=== PATIENT | female | born 1950 | race Caucasian/White ===

== ENCOUNTER 2017-08-31 22:50 | Inpatient (IN) | payer MEDICARE, MEDICAID ==
[~2017-08-31] VITALS: Ht 167.6 cm; Wt 70.0 kg
[2017-08-31] MEDS ORDERED: levoFLOXACIN-Levaquin 750MG/D5 150 ML IV ONE (23:15)
[2017-08-31] MEDS ORDERED: normal saline 1000ML IV soln IV ONE (23:15)
[2017-08-31 23:22] LABS: BASOPHILS % (AUTO) 0.3 % (0-1); EOSINOPHILS # (AUTO) 0.2 X10'3 (0-0.9); EOSINOPHILS % (AUTO) 2.1 % (0-6); HEMATOCRIT 36.9 % (35.0-45.0); HEMOGLOBIN 12.4 g/dl (12.0-16.0); LYMPHOCYTES # (AUTO) 1.2 X10'3 (1.1-4.8); LYMPHOCYTES % (AUTO) 15.4 % (21-51); MEAN CORPUSCULAR HEMOGLOBIN 27.9 PG (27.0-31.0); MEAN CORPUSCULAR HGB CONC 33.7 % (33.0-36.5); MEAN CORPUSCULAR VOLUME 82.7 FL (78-98); MEAN PLATELET VOLUME 9.7 FL (7.4-10.4); MONOCYTES # (AUTO) 0.4 X10'3 (0-0.9); MONOCYTES % (AUTO) 4.7 % (2-12); NEUTROPHILS % (AUTO) 77.5 % (42-75); PLATELET COUNT 176 X10'3 (140-440); RED BLOOD COUNT 4.47 X10'6 (4.20-5.60); RED CELL DISTRIBUTION WIDTH 15.8 % (11.5-14.5); WHITE BLOOD COUNT 7.7 X10'3 (4.5-11.0)
[2017-08-31 23:27] LABS: PARTIAL THROMBOPLASTIN TIME 30 SECONDS (22-32); PROTHROMBIN TIME 10.7 SECONDS (9.0-12.0)
[2017-08-31 23:33] LABS: ALANINE AMINOTRANSFERASE 33 U/L (12-78); ALBUMIN 3.2 G/DL (3.4-5.0); ALBUMIN/GLOBULIN RATIO 0.6 (1.1-1.5); ALKALINE PHOSPHATASE 129 IU/L (46-116); ANION GAP 12 (8-16); BILIRUBIN,TOTAL 0.5 MG/DL (0.1-1.0); BLOOD UREA NITROGEN 11 MG/DL (7-18); BUN/CREATININE RATIO 9.6 (6.6-38.0); CALCIUM 8.9 MG/DL (8.5-10.1); CHLORIDE 103 MMOL/L (99-107); CREATININE 1.14 MG/DL (0.40-0.90); GLUCOSE 198 MG/DL (70-104); MAGNESIUM 1.6 MG/DL (1.5-2.4); SODIUM 143 MMOL/L (135-145); TOTAL CARBON DIOXIDE 28.5 MMOL/L (24-32); TOTAL PROTEIN 8.3 G/DL (6.4-8.2); eGFR 47 ML/MIN
[2017-08-31 23:36] LABS: ASPARTATE AMINO TRANSFERASE 51 U/L (10-37); POTASSIUM 4.3 MMOL/L (3.5-5.1)
[2017-08-31 23:41] LABS: ABG HCO3 25.6 mmol/L (22.0-26.0); ABG PCO2 (T) 54.7 mmHg (32.0-45.0); ABG PH (T) 7.284 (7.350-7.450); ABG PO2 (T) 62.4 mmHg (83-108); ALLEN'S TEST Positive; FCOHb 3.2 % (0.5-1.5); FLOW 3 L/min; FMetHb 0.1 % (0.3-1.12); PATIENT TEMPERATURE 36.3; TOTAL HEMOGLOBIN 12.6 G/dl (12.0-16.0)
[2017-09-01] MEDS ORDERED: iohexol 350MG/ML 100ml bottle IV ONE (00:08)
[2017-09-01] MEDS: MESSAGE TO NURSING PO SCH ×2 (00:30→23:22)
[2017-09-01 01:25] LABS: CLARITY,URINE CLOUDY (Clear); COLOR,URINE YELLOW (Yellow); GLUCOSE, URINE NEGATIVE (Neg); KETONES,URINE NEGATIVE (Neg); LEUKOCYTE ESTERASE ,URINE NEGATIVE (Neg); NITRITES, URINE NEGATIVE (Neg); OCCULT BLOOD,URINE MODERATE (Neg); PH,URINE 5.5 (4.8-8.0); PROTEIN,URINE TRACE mg/dl (Neg); UROBILINOGEN,URINE 0.2 E.U/dL (0.2-1.0)
[2017-09-01 01:26] LABS: UA COLLECTION TYPE STRAIGHT CATH
[2017-09-01 01:32] LABS: SQUAMOUS EPITHELIAL CELL,UR MODERATE /LPF (FEW)
[2017-09-01 01:33] LABS: BACTERIA,URINE 1+ /HPF (Neg); WBC CLUMPS,URINE MODERATE /HPF (NEGATIVE); WBC,URINE 50-100 /HPF (0-4)
[2017-09-01] MEDS ORDERED: METF500T PO (01:34)
[2017-09-01] MEDS ORDERED: PRAV80TA3 PO (01:34)
[2017-09-01] MEDS ORDERED: ALPR1TAB2 PO (01:34)
[2017-09-01] MEDS ORDERED: DONE10TA37 PO (01:34)
[2017-09-01 01:35] LABS: AMORPHOUS URATES 1+
[2017-09-01] MEDS ORDERED: PROP1DRO7 OP (01:47)
[2017-09-01] MEDS ORDERED: GLIP5TAB13 PO (01:47)
[2017-09-01] MEDS ORDERED: IMIP50TA7 PO (01:47)
[2017-09-01] MEDS ORDERED: GUAI400T77 PO (01:47)
[2017-09-01] MEDS ORDERED: ALBU6.7H INH (01:47)
[2017-09-01] MEDS ORDERED: EZET10TA14 PO (01:47)
[2017-09-01] MEDS ORDERED: MESSAGE TO PHARMACY PO ONE (02:10)
[2017-09-01] MEDS ORDERED: glucagon, human recombinant 1mg kit SUBCUT PRN (02:10)
[2017-09-01] MEDS ORDERED: dextrose 50%-water 50ml dispensing syringe IV PRN ×2 (02:10)
[2017-09-01] MEDS ORDERED: insulin Lispro (HumaLOG) vial - multi-dose SQ SCH (02:10)
[2017-09-01] MEDS ORDERED: dextrose ORAL solution 15 GM/59 ML bottle PO PRN ×2 (02:10)
[2017-09-01] MEDS ORDERED: albuterol 2.5 MG/3 ML nebule NEB PRN (02:25)
[2017-09-01] MEDS ORDERED: ipratropium 0.5 MG/2.5ML nebule IH PRN (02:25)
[2017-09-01 02:33] LABS: ETHANOL < 0.010 GM/DL (0.0-0.010)
[2017-09-01] MEDS: normal saline 1000ml 1,000 ML IV SCH ×2 (02:34→22:17)
[2017-09-01 02:40] LABS: URINE AMPHETAMINE SCREEN NEGATIVE (Neg); URINE BARBITUATE SCREEN NEGATIVE (Neg); URINE BENZODIAZEPINES SCREEN POSITIVE (Neg); URINE CANNABINOID SCREEN NEGATIVE (Neg); URINE COCAINE SCREEN NEGATIVE (Neg); URINE METHADONE SCREEN NEGATIVE (Neg); URINE OPIATE SCREEN POSITIVE (Neg); URINE PHENCYCLIDINE SCREEN NEGATIVE (Neg)
[2017-09-01] MEDS ORDERED: azithromycin 250mg tablet PO SCH (02:41)
[2017-09-01 02:46] LABS: HEMOGLOBIN A1C 6.9 % (4.5-6.2)
[2017-09-01 03:00] VITALS: BP 124/59
[2017-09-01] MEDS ORDERED: cefTRIAXone 1g/NS 100ml IVPB 100 ML IV SCH (03:00)
[2017-09-01 06:00] VITALS: BP 122/53
[2017-09-01] MEDS: enoxaparin 40mg/0.4ml syringe SUBCUT SCH ×2 (08:00→09:09)
[2017-09-01] MEDS: ezetimibe 10mg tablet PO SCH (09:08)
[2017-09-01 11:00] VITALS: BP 118/47
[2017-09-01] MEDS: ampicill/sulbac 1.5gm/NS 100ml 100 ML IV SCH ×2 (14:25→20:18)
[2017-09-01 15:00] VITALS: BP 131/48
[2017-09-01] MEDS: ondansetron/PF 4mg/2ml inj IV PRN (16:45)
[2017-09-01] MEDS: lactobacillus rhamnosus 10,000 MMU CELLS/CAPSULE PO SCH (16:45)
[2017-09-01 19:00] VITALS: BP 126/50
[2017-09-01] MEDS: pravastatin 40mg tablet PO SCH (20:19)
[2017-09-01] MEDS: insulin glargine (Lantus) pen - multi-dose SQ SCH (21:00)
[2017-09-01 23:00] VITALS: BP_SYST 126; BP_SYST 151; BP_DIAS 50; BP_DIAS 55
[2017-09-02] VITALS (7 sets, daily range): BP systolic 146–166; BP diastolic 54–65
[2017-09-02] MEDS: ampicill/sulbac 1.5gm/NS 100ml 100 ML IV SCH ×4 (02:29→21:03)
[2017-09-02 05:34] LABS: BASOPHILS % (AUTO) 0.2 % (0-1); EOSINOPHILS # (AUTO) 0.2 X10'3 (0-0.9); EOSINOPHILS % (AUTO) 1.9 % (0-6); HEMATOCRIT 33.7 % (35.0-45.0); HEMOGLOBIN 11.4 g/dl (12.0-16.0); LYMPHOCYTES # (AUTO) 1.2 X10'3 (1.1-4.8); LYMPHOCYTES % (AUTO) 12.2 % (21-51); MEAN CORPUSCULAR HEMOGLOBIN 28.2 PG (27.0-31.0); MEAN CORPUSCULAR HGB CONC 33.8 % (33.0-36.5); MEAN CORPUSCULAR VOLUME 83.4 FL (78-98); MEAN PLATELET VOLUME 9.6 FL (7.4-10.4); MONOCYTES # (AUTO) 0.4 X10'3 (0-0.9); MONOCYTES % (AUTO) 4.3 % (2-12); NEUTROPHILS # (AUTO) 7.9 X10'3 (1.8-7.7); NEUTROPHILS % (AUTO) 81.4 % (42-75); PLATELET COUNT 155 X10'3 (140-440); RED BLOOD COUNT 4.04 X10'6 (4.20-5.60); RED CELL DISTRIBUTION WIDTH 15.8 % (11.5-14.5); WHITE BLOOD COUNT 9.7 X10'3 (4.5-11.0)
[2017-09-02 05:54] LABS: ALBUMIN 2.7 G/DL (3.4-5.0); ANION GAP 9 (8-16); BLOOD UREA NITROGEN 8 MG/DL (7-18); BUN/CREATININE RATIO 8.2 (6.6-38.0); CALCIUM 7.9 MG/DL (8.5-10.1); CHLORIDE 104 MMOL/L (99-107); CREATININE 0.98 MG/DL (0.40-0.90); GLUCOSE 133 MG/DL (70-104); POTASSIUM 3.9 MMOL/L (3.5-5.1); SODIUM 142 MMOL/L (135-145); TOTAL CARBON DIOXIDE 29.4 MMOL/L (24-32); eGFR 56 ML/MIN
[2017-09-02] MEDS: lactobacillus rhamnosus 10,000 MMU CELLS/CAPSULE PO SCH ×2 (07:22→17:17)
[2017-09-02] MEDS: ezetimibe 10mg tablet PO SCH (07:23)
[2017-09-02] MEDS: enoxaparin 40mg/0.4ml syringe SUBCUT SCH (07:24)
[2017-09-02] MEDS: nicotine 21mg patch - 24 hr TD SCH (07:25)
[2017-09-02] MEDS: normal saline 1000ml 1,000 ML IV SCH (17:54)
[2017-09-02] MEDS: insulin glargine (Lantus) pen - multi-dose SQ SCH (21:00)
[2017-09-02] MEDS: pravastatin 40mg tablet PO SCH (21:03)
[2017-09-03] MEDS: ampicill/sulbac 1.5gm/NS 100ml 100 ML IV SCH ×4 (01:39→20:01)
[2017-09-03 03:00] VITALS: BP 134/65
[2017-09-03 06:00] VITALS: BP 182/78
[2017-09-03 06:40] LABS: BASOPHILS % (AUTO) 0.3 % (0-1); EOSINOPHILS % (AUTO) 0.3 % (0-6); HEMATOCRIT 34.1 % (35.0-45.0); HEMOGLOBIN 11.7 g/dl (12.0-16.0); LYMPHOCYTES # (AUTO) 1.3 X10'3 (1.1-4.8); LYMPHOCYTES % (AUTO) 12.8 % (21-51); MEAN CORPUSCULAR HEMOGLOBIN 28.2 PG (27.0-31.0); MEAN CORPUSCULAR HGB CONC 34.2 % (33.0-36.5); MEAN CORPUSCULAR VOLUME 82.3 FL (78-98); MEAN PLATELET VOLUME 9.2 FL (7.4-10.4); MONOCYTES # (AUTO) 0.6 X10'3 (0-0.9); MONOCYTES % (AUTO) 6.3 % (2-12); NEUTROPHILS # (AUTO) 7.9 X10'3 (1.8-7.7); NEUTROPHILS % (AUTO) 80.3 % (42-75); PLATELET COUNT 151 X10'3 (140-440); RED BLOOD COUNT 4.14 X10'6 (4.20-5.60); RED CELL DISTRIBUTION WIDTH 15.7 % (11.5-14.5); WHITE BLOOD COUNT 9.9 X10'3 (4.5-11.0)
[2017-09-03 06:50] LABS: ALBUMIN 2.6 G/DL (3.4-5.0); ANION GAP 10 (8-16); BLOOD UREA NITROGEN 8 MG/DL (7-18); BUN/CREATININE RATIO 9.6 (6.6-38.0); CALCIUM 8.4 MG/DL (8.5-10.1); CHLORIDE 103 MMOL/L (99-107); CREATININE 0.83 MG/DL (0.40-0.90); GLUCOSE 152 MG/DL (70-104); POTASSIUM 3.4 MMOL/L (3.5-5.1); SODIUM 141 MMOL/L (135-145); TOTAL CARBON DIOXIDE 27.8 MMOL/L (24-32); eGFR 68 ML/MIN
[2017-09-03] MEDS: nicotine 21mg patch - 24 hr TD SCH (08:00)
[2017-09-03] MEDS: lactobacillus rhamnosus 10,000 MMU CELLS/CAPSULE PO SCH ×2 (08:15→17:16)
[2017-09-03] MEDS: enoxaparin 40mg/0.4ml syringe SUBCUT SCH (08:16)
[2017-09-03] MEDS: ezetimibe 10mg tablet PO SCH (08:16)
[2017-09-03] MEDS ORDERED: lisinopril 10 MG tablet PO SCH (08:45)
[2017-09-03 11:00] VITALS: BP 182/78
[2017-09-03] MEDS: normal saline 1000ml 1,000 ML IV SCH (13:54)
[2017-09-03 15:00] VITALS: BP 184/94
[2017-09-03] MEDS ORDERED: lisinopril 10 MG tablet PO ONE (16:30)
[2017-09-03] MEDS ORDERED: furosemide 20 MG/2 ML vial IV ONE (18:35)
[2017-09-03 19:00] VITALS: BP 188/72
[2017-09-03] MEDS ORDERED: potassium Cl 20 mEq SR tablet PO PRN (19:25)
[2017-09-03] MEDS ORDERED: potassium Cl 40MEQ/NS 500ml 500 ML IV PRN ×2 (19:25)
[2017-09-03] MEDS ORDERED: magnesium 4gm in 100ml NS 100 ML IV PRN (19:25)
[2017-09-03] MEDS ORDERED: magnesium Cl slow-release 64mg tablet PO PRN (19:25)
[2017-09-03] MEDS ORDERED: magnesium 2GM in 50ml NS 50 ML IV PRN (19:25)
[2017-09-03] MEDS: pravastatin 40mg tablet PO SCH (20:00)
[2017-09-03] MEDS: lisinopril 20mg tablet PO SCH (20:00)
[2017-09-03] MEDS: potassium Cl 20 mEq SR tablet PO PRN (20:01)
[2017-09-03] MEDS: insulin glargine (Lantus) pen - multi-dose SQ SCH (21:00)
[2017-09-03 23:00] VITALS: BP 169/67
[2017-09-04] VITALS: BP 164/68
[2017-09-04] MEDS: ampicill/sulbac 1.5gm/NS 100ml 100 ML IV SCH ×3 (02:12→14:00)
[2017-09-04 05:51] LABS: BASOPHILS % (AUTO) 0.1 % (0-1); EOSINOPHILS # (AUTO) 0.2 X10'3 (0-0.9); EOSINOPHILS % (AUTO) 1.9 % (0-6); HEMATOCRIT 35.5 % (35.0-45.0); HEMOGLOBIN 12.1 g/dl (12.0-16.0); LYMPHOCYTES # (AUTO) 1.5 X10'3 (1.1-4.8); LYMPHOCYTES % (AUTO) 14.8 % (21-51); MEAN CORPUSCULAR HEMOGLOBIN 28.2 PG (27.0-31.0); MEAN CORPUSCULAR HGB CONC 34.2 % (33.0-36.5); MEAN CORPUSCULAR VOLUME 82.5 FL (78-98); MEAN PLATELET VOLUME 9.3 FL (7.4-10.4); MONOCYTES # (AUTO) 0.6 X10'3 (0-0.9); MONOCYTES % (AUTO) 5.8 % (2-12); NEUTROPHILS # (AUTO) 7.7 X10'3 (1.8-7.7); NEUTROPHILS % (AUTO) 77.4 % (42-75); PLATELET COUNT 187 X10'3 (140-440); RED CELL DISTRIBUTION WIDTH 15.4 % (11.5-14.5)
[2017-09-04 06:29] LABS: ALBUMIN 2.4 G/DL (3.4-5.0); ANION GAP 10 (8-16); BLOOD UREA NITROGEN 11 MG/DL (7-18); BUN/CREATININE RATIO 13.4 (6.6-38.0); CALCIUM 8.5 MG/DL (8.5-10.1); CHLORIDE 102 MMOL/L (99-107); CREATININE 0.82 MG/DL (0.40-0.90); GLUCOSE 131 MG/DL (70-104); SODIUM 142 MMOL/L (135-145); TOTAL CARBON DIOXIDE 29.9 MMOL/L (24-32); eGFR 69 ML/MIN
[2017-09-04 06:38] LABS: POTASSIUM 2.8 MMOL/L (3.5-5.1)
[2017-09-04] MEDS ORDERED: LIDOcaine 1% 30ml vial 5 ML in potassium Cl 40MEQ/NS 500ml 500 ML IV PRN (07:25)
[2017-09-04] MEDS: lactobacillus rhamnosus 10,000 MMU CELLS/CAPSULE PO SCH (07:38)
[2017-09-04] MEDS: lisinopril 20mg tablet PO SCH (07:38)
[2017-09-04] MEDS: nicotine 21mg patch - 24 hr TD SCH (07:39)
[2017-09-04] MEDS: enoxaparin 40mg/0.4ml syringe SUBCUT SCH (07:39)
[2017-09-04] MEDS: normal saline 1000ml 1,000 ML IV SCH (07:40)
[2017-09-04] MEDS: ezetimibe 10mg tablet PO SCH (07:41)
[2017-09-04 08:00] VITALS: BP 168/80
[2017-09-04] MEDS ORDERED: lisinopril 20mg tablet PO SCH (08:00)
[2017-09-04] MEDS: ondansetron/PF 4mg/2ml inj IV PRN (08:31)
[2017-09-04] MEDS: potassium Cl 20 mEq SR tablet PO PRN (10:15)
[2017-09-04 10:49] VITALS: BP 169/67
== END 2017-09-04 17:18 | DRG 177 ==
LOC: ER 22:51 → ED HOLD 09-01 01:54 → PCU 3S 09-01 03:35 → SUR 3N 09-03 22:17
PROVIDERS: ADMIT Family Medicine; ATTEND Internal Medicine
PROC: 5A09357 Assistance with Respiratory Ventilation, Less than 24 Consecutive Hours, Continuous Positive Airway Pressure (ICD-10-PCS; principal; 2017-09-01)
PROC: B32T1ZZ Computerized Tomography (CT Scan) of Left Pulmonary Artery using Low Osmolar Contrast (ICD-10-PCS; 2017-09-01)
PROC: B3201ZZ Computerized Tomography (CT Scan) of Thoracic Aorta using Low Osmolar Contrast (ICD-10-PCS; 2017-09-01)
PROC: B32S1ZZ Computerized Tomography (CT Scan) of Right Pulmonary Artery using Low Osmolar Contrast (ICD-10-PCS; 2017-09-01)
DX: J69.0 Pneumonitis due to inhalation of food and vomit (principal); J96.21 Acute and chronic respiratory failure with hypoxia; G20 Parkinson's disease; J44.0 Chronic obstructive pulmonary disease with (acute) lower respiratory infection; J44.1 Chronic obstructive pulmonary disease with (acute) exacerbation; R18.8 Other ascites; N39.0 Urinary tract infection, site not specified; R16.1 Splenomegaly, not elsewhere classified; F02.80 Dementia in other diseases classified elsewhere, unspecified severity, without behavioral disturbance, psychotic disturbance, mood disturbance, and anxiety; E11.9 Type 2 diabetes mellitus without complications; E78.5 Hyperlipidemia, unspecified; E87.6 Hypokalemia; F32.9 Major depressive disorder, single episode, unspecified; K74.60 Unspecified cirrhosis of liver; I10 Essential (primary) hypertension; F17.210 Nicotine dependence, cigarettes, uncomplicated; Z90.710 Acquired absence of both cervix and uterus; Z90.49 Acquired absence of other specified parts of digestive tract; Z88.6 Allergy status to analgesic agent; Z88.1 Allergy status to other antibiotic agents; Z88.8 Allergy status to other drugs, medicaments and biological substances; Z79.899 Other long term (current) drug therapy; Z79.82 Long term (current) use of aspirin; Z82.0 Family history of epilepsy and other diseases of the nervous system; Z83.3 Family history of diabetes mellitus; Z71.6 Tobacco abuse counseling
CPT/HCPCS: 36415; 36600; 71045; 71275; 80048; 80053; 80305; 80320; 81001; 82803; 82948; 83036; 83605; 83735; 84132; 84145; 85018; 85025; 85610; 85730; 87040; 87070; 87088; 87502; 87503; 92616; 93005; 93306; 94660; 94668; 94760; 96365; 97110; 97161; 97530; 99285; A6213; J0295; J0696; J1650; J1815; J1940; J1956; J2405; J3480; J3490; J7030; Q9967

== ENCOUNTER 2017-12-20 16:00 | Emergency (ER) | payer MEDICARE, MEDICAID ==
[~2017-12-20] VITALS: Ht 167.6 cm; Wt 71.5 kg
[~2017-12-20 16:00] MED LIST: ALBU6.7H INH; ALPR1TAB2 PO; DONE10TA37 PO; EZET10TA14 PO; GLIP5TAB13 PO; GUAI400T77 PO; IMIP50TA7 PO; METF500T PO; PRAV80TA3 PO; PROP1DRO7 OP
[2017-12-20] MEDS ORDERED: normal saline 1000ML IV soln IVB ONE (16:25)
[2017-12-20 16:47] LABS: BASOPHILS % (AUTO) 0.3 % (0-1); EOSINOPHILS # (AUTO) 0.5 X10'3 (0-0.9); EOSINOPHILS % (AUTO) 6.7 % (0-6); HEMOGLOBIN 9.6 g/dl (12.0-16.0); LYMPHOCYTES # (AUTO) 2.5 X10'3 (1.1-4.8); LYMPHOCYTES % (AUTO) 32.5 % (21-51); MEAN CORPUSCULAR HEMOGLOBIN 26.5 PG (27.0-31.0); MEAN CORPUSCULAR HGB CONC 32.9 % (33.0-36.5); MEAN CORPUSCULAR VOLUME 80.6 FL (78-98); MEAN PLATELET VOLUME 10.3 FL (7.4-10.4); MONOCYTES # (AUTO) 0.6 X10'3 (0-0.9); MONOCYTES % (AUTO) 8.3 % (2-12); NEUTROPHILS % (AUTO) 52.2 % (42-75); PLATELET COUNT 157 X10'3 (140-440); RED CELL DISTRIBUTION WIDTH 16.3 % (11.5-14.5); WHITE BLOOD COUNT 7.7 X10'3 (4.5-11.0)
[2017-12-20 16:56] LABS: PROTHROMBIN TIME 10.6 SECONDS (9.0-12.0)
[2017-12-20 17:04] LABS: ALANINE AMINOTRANSFERASE 58 U/L (12-78); ALBUMIN 3.2 G/DL (3.4-5.0); ALBUMIN/GLOBULIN RATIO 0.7 (1.1-1.5); ALKALINE PHOSPHATASE 114 IU/L (46-116); ANION GAP 12 (8-16); ASPARTATE AMINO TRANSFERASE 44 U/L (10-37); BILIRUBIN,TOTAL 0.4 MG/DL (0.1-1.0); BLOOD UREA NITROGEN 17 MG/DL (7-18); BUN/CREATININE RATIO 18.5 (6.6-38.0); CALCIUM 9.9 MG/DL (8.5-10.1); CHLORIDE 103 MMOL/L (99-107); CREATININE 0.92 MG/DL (0.40-0.90); GLUCOSE 230 MG/DL (70-104); POTASSIUM 4.1 MMOL/L (3.5-5.1); SODIUM 138 MMOL/L (135-145); TOTAL CARBON DIOXIDE 23.3 MMOL/L (24-32); TOTAL PROTEIN 7.9 G/DL (6.4-8.2); eGFR 61 ML/MIN
[2017-12-20 17:25] LABS: CLARITY,URINE CLOUDY (Clear); COLOR,URINE YELLOW (Yellow); GLUCOSE, URINE >=1000 mg/dl (Neg); KETONES,URINE NEGATIVE (Neg); LEUKOCYTE ESTERASE ,URINE MODERATE (Neg); NITRITES, URINE POSITIVE (Neg); OCCULT BLOOD,URINE LARGE (Neg); PH,URINE 5.5 (4.8-8.0); PROTEIN,URINE NEGATIVE (Neg); UA COLLECTION TYPE CLN CATCH MIDSTREAM; UROBILINOGEN,URINE 0.2 E.U/dL (0.2-1.0)
[2017-12-20 17:47] LABS: SQUAMOUS EPITHELIAL CELL,UR MANY /LPF (FEW)
[2017-12-20 17:49] LABS: WBC,URINE 50-100 /HPF (0-4)
[2017-12-20 17:50] LABS: BACTERIA,URINE 1+ /HPF (Neg)
[2017-12-20 18:38] VITALS: BP 124/71
== END 2017-12-20 18:40 | disposition home or self-care (01) ==
LOC: ER 16:01
DX: E11.65 Type 2 diabetes mellitus with hyperglycemia (principal); E11.42 Type 2 diabetes mellitus with diabetic polyneuropathy; G20 Parkinson's disease; F02.80 Dementia in other diseases classified elsewhere, unspecified severity, without behavioral disturbance, psychotic disturbance, mood disturbance, and anxiety; I10 Essential (primary) hypertension; Z87.891 Personal history of nicotine dependence; Z88.5 Allergy status to narcotic agent; Z88.1 Allergy status to other antibiotic agents; Z90.49 Acquired absence of other specified parts of digestive tract; Z90.710 Acquired absence of both cervix and uterus; Z79.4 Long term (current) use of insulin
CPT/HCPCS: 36415; 71045; 80053; 81001; 82009; 82948; 84484; 85025; 85610; 93005; 96360; 99285; J7030

== ENCOUNTER 2018-04-12 08:33 | Day surgery (SDC) | payer MEDICARE, MEDICAID ==
[~2018-04-12] VITALS: Ht 167.6 cm; Wt 69.4 kg
[2018-04-12 08:50] VITALS: BP 153/86
[2018-04-12] MEDS ORDERED: LIDOcaine 1% (10mg/ml)w/preservative injection 20ml MDV SQ ONE (09:00)
[2018-04-12] MEDS ORDERED: normal saline 1000ml 1,000 ML IV PRN (09:00)
[2018-04-12] MEDS ORDERED: albumin (human) 25% 100 ML IV solution IV PRN (09:00)
[2018-04-12 09:10] VITALS: BP 153/86
[2018-04-12 09:37] VITALS: BP 136/69
[2018-04-12 09:55] VITALS: BP 140/77
[2018-04-12 11:36] LABS: LYMPHOCYTES,BODY FLUID 69 %; MONOCYTES,BODY FLUID 26 %; NEUTROPHILS,BODY FLUID 5 %
[2018-04-12 11:40] LABS: BF RBC COUNT 650 /CU MM; BF WBC COUNT 560 /CU MM (0-1000); BFAPPEAR HAZY; BFCOLOR STRAW; BFVOLUME 45 ML
[2018-04-12 11:41] LABS: BF MESOTHELIAL CELLS FEW
[2018-04-12] MEDS ORDERED: ALBU90AE IH (15:39)
== END 2018-04-12 10:00 | disposition home or self-care (01) ==
LOC: SSTAY O 08:33
PROVIDERS: ATTEND Radiology Diagnostic Radiology
DX: R18.8 Other ascites (principal); G20 Parkinson's disease; E11.42 Type 2 diabetes mellitus with diabetic polyneuropathy; I10 Essential (primary) hypertension; J44.9 Chronic obstructive pulmonary disease, unspecified; F41.8 Other specified anxiety disorders; F03.90 Unspecified dementia, unspecified severity, without behavioral disturbance, psychotic disturbance, mood disturbance, and anxiety; Z87.01 Personal history of pneumonia (recurrent); Z99.81 Dependence on supplemental oxygen; Z87.442 Personal history of urinary calculi; Z87.440 Personal history of urinary (tract) infections; Z90.49 Acquired absence of other specified parts of digestive tract; Z90.710 Acquired absence of both cervix and uterus; Z87.891 Personal history of nicotine dependence; Z79.84 Long term (current) use of oral hypoglycemic drugs; Z88.1 Allergy status to other antibiotic agents; Z88.6 Allergy status to analgesic agent; Z88.5 Allergy status to narcotic agent; Z79.899 Other long term (current) drug therapy; Z88.8 Allergy status to other drugs, medicaments and biological substances; Z98.890 Other specified postprocedural states
CPT/HCPCS: 49083; 87070; 89051; A6257; J2001